=== PATIENT | male | born 1985 | race African-American/Black ===

== ENCOUNTER 2019-06-30 16:10 | Emergency (ER) | payer SELFPAY ==
[2019-06-30 16:50] LABS: #Eosinphils 0.1 thou/uL (0.0-0.7); #Lymphocytes 1.5 thou/uL (1.20-3.40); #Monocytes 0.5 thou/uL (0.11-0.59); #Neutrophils 4.3 thou/uL (1.40-6.50); %Basophils 0.7 % (0.0-1.0); %Lymphocytes 22.7 % (21.0-51.0); %Monocytes 7.8 % (0.0-10.0); %Neutrophils 67.7 % (42.0-75.0); Hemoglobin 14.3 g/dL (14.0-18.0); Mean Corpuscular HGB CONC 32.5 g/dL (32.0-36.0); Mean Corpuscular Hemoglobin 25.8 pg (27.0-31.0); Mean Corpuscular Volume 79.2 fL (78.0-98.0); Mean Platelet Volume 8.3 fL (7.4-10.4); Platelet Count 312 thou/uL (130-400); RBC Distribution Width 12.5 % (11.5-14.5); Red Blood Cell (RBC) Count 5.54 mill/uL (4.70-6.10); White Blood Cell (WBC) Count 6.4 thou/uL (4.8-10.8)
[2019-06-30 17:17] LABS: ALT (SGPT) 16 U/L (8-55); AST (SGOT) 36 U/L (5-34); Albumin 3.9 g/dL (3.5-5.0); Alkaline Phosphatase 72 U/L (40-110); Anion Gap 15 mmol/L (10-20); BUN (Urea Nitrogen) 16 mg/dL (8.9-20.6); Bilirubin, Total 0.6 mg/dL (0.2-1.2); CK (CPK) 1099 U/L (30-200); Calc. Creatinine Clearance 0 mL/min (70-130); Calcium 9.3 mg/dL (7.8-10.44); Carbon Dioxide 25 mmol/L (22-29); Chloride 102 mmol/L (98-107); Estimated GFR-MDRD 72; Globulin 2.8 g/dL (2.4-3.5); Glucose 77 mg/dL (70-105); Magnesium 1.9 mg/dL (1.6-2.6); Protein, Total 6.7 g/dL (6.0-8.3); Sodium 138 mmol/L (136-145)
--- NOTE | 2019-07-03 15:37 | EKG ---
Test Reason : Blood Pressure : / mmHG Vent. Rate : 078 BPM Atrial Rate : 078 BPM P-R Int : 136 ms QRS Dur : 090 ms QT Int : 384 ms P-R-T Axes : 076 080 050 degrees QTc Int : 437 ms Normal sinus rhythm Possible Acute pericarditis Abnormal ECG Confirmed by JOSE GONZÁLES M.D. ([id number]), editor [place] ([id number]) on 07/03/2019 3:37:34 PM Referred By: Confirmed By:JOSE GONZÁLES M.D.
== END 2019-06-30 19:14 | disposition home or self-care (01) ==
LOC: ERS 16:10
DX: E86.0 Dehydration (principal); R55 Syncope and collapse; F17.210 Nicotine dependence, cigarettes, uncomplicated
CPT/HCPCS: 36415; 80053; 82550; 83735; 84484; 85025; 93005

== ENCOUNTER 2019-10-27 03:12 | Emergency (ER) | payer SELFPAY ==
[2019-10-27] MEDS ORDERED: Adacel (T-DAP) 0.5 ML SYRINGE ONE (03:24)
[2019-10-27] MEDS ORDERED: Triple Antibiotic Oint 1 GM Packet ONE (03:25)
[2019-10-27] MEDS ORDERED: Ibuprofen 200 MG TAB ONE (03:47)
--- NOTE | 2019-10-27 08:14 | RAD ---
EXAM: Chest PA and lateral: HISTORY: Deform[facility] COMPARISON: 07/15/2015 FINDINGS: Heart: Normal cardiac silhouette Aorta: Unremarkable Pulmonary vessels: Normal Costophrenic angles: Costophrenic angles are clear. Lungs: No consolidation or masses. Pneumothorax: No pneumothorax Osseous structures: No osseous abnormalities IMPRESSION: No acute cardiopulmonary process.
== END 2019-10-27 03:50 ==
LOC: ERS 03:12
DX: S80.212A Abrasion, left knee, initial encounter (principal); R07.89 Other chest pain; F17.210 Nicotine dependence, cigarettes, uncomplicated; W18.30XA Fall on same level, unspecified, initial encounter; Y93.02 Activity, running
CPT/HCPCS: 71046; 90715; 99283